=== PATIENT | female | born 1990 | race Caucasian/White ===

== ENCOUNTER → 2020-08-11 11:56 | Outpatient (CLI) | payer OTHER, SELFPAY ==
[2020-08-11 12:32] LABS: Add Manual Diff / Slide Review NO; Basophils Absolute Auto 100 /uL (0-100); Basophils Percent Auto 0.9 % (0-2); Eosinophils Absolute Auto 100 /uL (0-450); Eosinophils Percent Auto 0.7 % (2-4); Hematocrit 38.5 % (36-46); Hemoglobin 12.9 g/dL (12.0-16.0); Lymphocytes Absolute Auto 1700 /uL (1100-4500); Lymphocytes Percent Auto 22.8 % (25-40); Mean Corpuscular HGB Conc 33.6 % (30-36); Mean Corpuscular Hemoglobin 31.1 PG (26-34); Mean Corpuscular Volume 92.8 fL (80-100); Monocytes Absolute Auto 400 /uL (0-900); Neutrophils Absolute Auto 5300 /uL (1500-7000); Neutrophils Percent Auto 70.6 % (50-75); Platelet Count 315 X10^3/uL (150-400); Red Blood Cell Count 4.15 X10^6/uL (4.0-5.2); Red Cell Distribution Width 13.8 % (11.6-14.8); White Blood Cell Count 7.5 X10^3/uL (4.5-11.0)
[2020-08-11 13:09] LABS: Alanine Aminotransferase 41 IU/L (<35); Albumin 3.8 g/dL (3.5-5.0); Albumin Globulin Ratio 1.3 (1.0-2.8); Alkaline Phosphatase 64 U/L (38-126); Aspartate Aminotransferase 29 IU/L (14-36); BUN Creatinine Ratio 19.7 (6-22); Bilirubin Total 0.4 mg/dL (0.2-1.3); Blood Urea Nitrogen 15 mg/dL (7-17); Calcium 8.8 mg/dL (8.4-10.2); Carbon Dioxide 28 mmol/L (22-32); Chloride 105 mmol/L (98-107); Cholesterol 149 mg/dL (140-199); Estimated Glomerular Filt Rate > 60.0 mL/min (>60); Globulin 2.9 g/dL (1.7-4.1); Glucose 91 mg/dL (70-100); HDL Cholesterol 39 mg/dL (40-60); HEMOLYSIS < 15 (0-50); LDL Cholesterol Calculated 88 mg/dL (<100); Potassium 3.9 mmol/L (3.4-5.1); Sodium 137 mmol/L (137-145); Total Protein 6.7 g/dL (6.3-8.2); Triglycerides 112 mg/dL (35-150)
== END ==
PROVIDERS: PCP Registered Nurse; Referring Provider Registered Nurse; Visit Provider Registered Nurse
DX: Z79.899 Other long term (current) drug therapy (principal); Z82.49 Family history of ischemic heart disease and other diseases of the circulatory system
CPT/HCPCS: 36415; 80053; 80061; 85025

== ENCOUNTER → 2020-10-08 10:18 | Outpatient (CLI) | payer OTHER, SELFPAY ==
[2020-10-08 11:49] LABS: Free T4, Direct Thyroxine 1.09 ng/dL (0.78-2.19)
[2020-10-08 12:03] LABS: Thyroid Stimulating Hormone 1.26 uIU/mL (0.47-4.68)
== END ==
PROVIDERS: PCP Registered Nurse; Referring Provider Registered Nurse; Visit Provider Registered Nurse
DX: L65.9 Nonscarring hair loss, unspecified (principal)
CPT/HCPCS: 36415; 84439; 84443

== ENCOUNTER → 2020-10-28 10:10 | Outpatient (CLI) | payer OTHER, SELFPAY ==
--- NOTE | 2020-10-28 10:11 | DI.US.S_ITS ---
PROCEDURE: US PELVIC COMPLETE INDICATIONS: PCOS TECHNIQUE: Real-time scanning was performed of the pelvic organs, with image documentation. Additional endovaginal scanning was necessary due to incomplete visualization of the adnexal and endometrial structures by transabdominal scanning. COMPARISON: None. FINDINGS: Uterus: Uterus is normal in size at 8.7 x 5.0 x 5.1 cm. The endometrium measures 28.0 mm in combined thickness. Ovaries: Right ovary measures 2.4 x 2.4 x 1.4 cm and the left 3.2 x 3.1 x 2.0 cm. Exophytic simple cyst involves the left ovary measuring 19 mm. Less than 12 subcentimeter follicular cysts bilaterally. Other: No pathologic free abdominal or pelvic fluid. IMPRESSION: 1. Abnormal thickening of the endometrial complex measuring up to 28 mm. Although findings may be related to endometrial hyperplasia; differential would include other benign and malignant etiologies. Recommend gynecologic consultation. 2. Exophytic left ovarian cyst; otherwise normal ovaries. Dictated by: [facility] Interpreted: Vin Mckeon MD on 10/28/2020 at 15:30 Approved by: Vin Mckeon M.D. on 10/28/2020 at 16:25
== END ==
PROVIDERS: PCP Registered Nurse; Referring Provider Registered Nurse; Visit Provider Registered Nurse
DX: E28.2 Polycystic ovarian syndrome (principal)
CPT/HCPCS: 76830; 76856

== ENCOUNTER → 2020-11-11 09:39 | Outpatient (CLI) | payer OTHER, SELFPAY ==
[2020-11-11 11:00] LABS: Hemoglobin A1C% w Est Avg Glu 5.3 % (4.0-6.0)
[2020-11-11 11:08] LABS: Alanine Aminotransferase 51 IU/L (<35); Aspartate Aminotransferase 27 IU/L (14-36)
[2020-11-11 11:15] LABS: Erythrocyte Sedimentation Rate 21 MM/HR (0-20)
[2020-11-11 11:38] LABS: Ferritin 33 ng/mL (6-137)
== END ==
PROVIDERS: PCP Registered Nurse; Referring Provider Physician Assistant Medical; Visit Provider Obstetrics & Gynecology
DX: L65.9 Nonscarring hair loss, unspecified (principal); E28.2 Polycystic ovarian syndrome
CPT/HCPCS: 36415; 82728; 83036; 84450; 84460; 85651

== ENCOUNTER → 2020-12-28 14:25 | Outpatient (CLI) | payer OTHER, SELFPAY | PROVIDERS: PCP Registered Nurse; Visit Provider Registered Nurse | DX: Z11.3 Encounter for screening for infections with a predominantly sexual mode of transmission (principal); Z11.8 Encounter for screening for other infectious and parasitic diseases | CPT/HCPCS: 87210 ==

== ENCOUNTER → 2021-01-05 13:12 | Outpatient (CLI) | payer OTHER, SELFPAY ==
[2021-01-06 07:18] LABS: HSV 2 IGG AB < 0.91 index (0.00-0.90); HSV1IGG < 0.91 index (0.00-0.90)
[2021-01-06 07:43] LABS: RPR Screen Non Reactive (Non Reactive)
[2021-01-06 18:44] LABS: HSV I/II IgM <0.91 Ratio (0.00-0.90)
[2021-01-07 17:10] LABS: Hepatitis B Surface Antigen NEGATIVE s/c (NEGATIVE)
[2021-01-07 17:27] LABS: HIV 1 & 2 Ab/Ag 4th Gen Combo NEGATIVE (NEGATIVE); Hep C Virus Ab w/Reflex Quant NEGATIVE s/c (NEGATIVE)
== END ==
PROVIDERS: PCP Registered Nurse; Referring Provider Registered Nurse; Visit Provider Registered Nurse
DX: Z11.3 Encounter for screening for infections with a predominantly sexual mode of transmission (principal); Z11.8 Encounter for screening for other infectious and parasitic diseases; Z12.4 Encounter for screening for malignant neoplasm of cervix
CPT/HCPCS: 36415; 86592; 86694; 86695; 86696; 86803; 87340; 87389

== ENCOUNTER → 2021-08-06 09:51 | Outpatient (CLI) | payer OTHER, SELFPAY ==
[2021-08-06 10:44] LABS: COVID19 -Nasal RAPID Negative (Negative)
== END ==
PROVIDERS: PCP Registered Nurse; Visit Provider Nurse Practitioner Family
DX: Z20.822 Contact with and (suspected) exposure to COVID-19 (principal)
CPT/HCPCS: 87635